=== PATIENT | female | born 1995 | race Caucasian/White ===

== ENCOUNTER 2019-10-03 21:19 | Emergency (ER) | payer BC ==
[2019-10-03] MEDS ORDERED: Sodium Chloride 0.9% 10 ML Syringe FLUSH PRN (21:42)
[2019-10-03] MEDS ORDERED: Sodium Chloride 0.9% 1,000 ML IV ONE (21:54)
[2019-10-03 21:59] LABS: CHLORIDE,CL 104 mmol/L (98-107); SODIUM,NA 138 mmol/L (136-145)
--- NOTE | 2019-10-03 22:24 | EDM.PDOC ---
ED HPI GENERAL MEDICAL PROBLEM - General Chief Complaint: General Stated Complaint: dizziness Time Seen by Provider: 10/03/19 21:30 Source of Information: Reports: Patient History Limitations: Reports: No Limitations - History of Present Illness INITIAL COMMENTS - FREE TEXT/NARRATIVE: Pt has felt weak and tired for several days Decreased appetite Dizzy when stands up No fever No N/V/D Pt currently on menses Did have flu shot - Related Data Allergies Allergy/AdvReac Type Severity Reaction Status Date / Time metronidazole [From Flagyl] Allergy Shortness Verified 10/03/19 21:43 of Breath Home Meds: Home Meds FLUoxetine HCl [Fluoxetine] 20 mg PO DAILY 10/03/19 [History] Ibuprofen 200 mg PO Q4HR PRN 10/03/19 [History] Social & Family History - Tobacco Use Smoking Status *Q: Never Smoker Second Hand Smoke Exposure: No - Caffeine Use Caffeine Use: Reports: Coffee Other Caffeine Use: 2-3 cups per day - Recreational Drug Use Recreational Drug Use: No ED ROS GENERAL - Review of Systems Review Of Systems: See Below Constitutional: Reports: Malaise, Weakness, Decreased Appetite Respiratory: Reports: No Symptoms Cardiovascular: Reports: No Symptoms GI/Abdominal: Reports: No Symptoms Musculoskeletal: Reports: No Symptoms Neurological: Reports: Dizziness ED EXAM, GENERAL - Physical Exam Exam: See Below Exam Limited By: No Limitations General Appearance: Mild Distress Throat/Mouth: Normal Oropharynx Neck: Supple Respiratory/Chest: Lungs Clear Cardiovascular: Regular Rate, Rhythm GI/Abdominal: Non-Tender Extremities: Normal Inspection Neurological: Alert, Oriented, No Motor/Sensory Deficits Course - Vital Signs Last Recorded V/S: Last Vital Signs Temp 36.4 C 10/03/19 21:35 Pulse 72 10/03/19 21:59 Resp 16 10/03/19 21:35 BP 115/65 10/03/19 21:59 Pulse Ox 95 10/03/19 21:35 - Orders/Labs/Meds Orders: Active Orders 24 hr Category Date Time Status EKG Documentation Completion [RC] ASDIRECTED Care 10/03/19 21:42 Active Peripheral IV Care [RC] . DIRECTED Care 10/03/19 21:42 Active Sodium Chloride 0.9% [Normal Saline] 1,000 ml Med 10/03/19 21:54 Active IV .BOLUS Sodium Chloride 0.9% [Saline Flush] Med 10/03/19 21:42 Active 10 ml FLUSH ASDIRECTED PRN Peripheral IV Insertion Adult [OM.PC] Routine Oth 10/03/19 21:42 Ordered EKG 12 Lead [EK] Routine Ther 10/03/19 21:41 Ordered Medication Orders Sodium Chloride (Normal Saline) 1,000 mls @ 1,000 mls/hr IV .BOLUS ONE Stop: 10/03/19 22:53 Last Admin: 10/03/19 21:58 Dose: 1,000 mls/hr Sodium Chloride (Saline Flush) 10 ml FLUSH ASDIRECTED PRN PRN Reason: Keep Vein Open Labs: Laboratory Tests 10/03/19 10/03/19 Range/Units 21:40 21:40 WBC 4.2 (4.0-10.2) K/uL RBC 4.62 (3.77-5.09) M/uL Hgb 13.6 (11.7-15.5) g/dL Hct 40.5 (34.0-46.0) % MCV 87.7 (84.0-98.0) fL MCH 29.4 (28.2-33.3) pg MCHC 33.6 (31.7-36.0) g/dL RDW 12.0 (11.2-14.1) % Plt Count 175 (150-350) K/uL Neut % (Auto) 58.5 (45.0-80.0) % Lymph % (Auto) 23.4 (10.0-50.0) % Hart % (Auto) 16.5 H (2.0-14.0) % Eos % (Auto) 1.4 (0.0-5.0) % Baso % (Auto) 0.2 (0.0-2.0) % Neut # (Auto) 2.44 (1.40-7.00) K/uL Lymph # (Auto) 0.98 (0.50-3.50) K/uL Hart # (Auto) 0.69 (0.00-1.00) K/uL Eos # (Auto) 0.06 (0.00-0.50) K/uL Baso # (Auto) 0.01 (0.00-0.20) K/uL Sodium 138 (136-145) mmol/L Potassium 3.7 (3.5-5.1) mmol/L Chloride 104 (98-107) mmol/L Carbon Dioxide 20.3 L (21.0-32.0) mmol/L BUN 11 (7-18) mg/dL Creatinine 0.78 (0.51-1.17) mg/dL Est Cr Clr Drug Dosing 96.04 mL/min Estimated GFR (MDRD) > 60 mL/min Glucose 102 (74-106) mg/dL Calcium 8.9 (8.5-10.1) mg/dL Total Bilirubin 0.2 (0.2-1.0) mg/dL AST 17 (15-37) U/L ALT 17 (12-78) U/L Alkaline Phosphatase 102 (46-116) IU/L Total Protein 7.8 (6.4-8.2) g/dL Albumin 4.0 (3.4-5.0) g/dL Meds: Medications Generic Name Dose Route Start Last Admin Trade Name Freq PRN Reason Stop Dose Admin Sodium Chloride 1,000 mls @ 1,000 mls/hr 10/03/19 21:54 10/03/19 21:58 Normal Saline IV 10/03/19 22:53 1,000 mls/hr .BOLUS ONE Administration Sodium Chloride 10 ml 10/03/19 21:42 Saline Flush FLUSH ASDIRECTED PRN Keep Vein Open - Re-Assessments/Exams Free Text/Narrative Re-Assessment/Exam: 10/03/19 22:22 Pt Influenza B positive Pt given NS IVF with improved symptoms Departure - Departure Time of Disposition: 23:30 Disposition: Home, Self-Care 01 Clinical Impression: Influenza B - Discharge Information *PRESCRIPTION DRUG MONITORING PROGRAM REVIEWED*: Not Applicable *COPY OF PRESCRIPTION DRUG MONITORING REPORT IN PATIENT JUAN MANUEL: Not Applicable Instructions: Influenza, Adult, [id number] Referrals: Chen Gonzalez, [employer] [Primary Care Provider] - Additional Instructions: Tylenol or Motrin as needed Encourage fluids Follow up in clinic Sepsis Event Note - Evaluation Sepsis Screening Result: No Definite Risk - Focused Exam Vital Signs: Vital Signs Temp Pulse Resp BP Pulse Ox 10/03/19 21:59 72 115/65 10/03/19 21:44 106 H 102/60 10/03/19 21:40 103 H 110/66 10/03/19 21:35 36.4 C 86 16 118/73 95 Date Exam was Performed: 10/03/19 Time Exam was Performed: 22:19 - My Orders Last 24 Hours: My Active Orders 10/03/19 21:41 EKG 12 Lead [EK] Routine 10/03/19 21:42 EKG Documentation Completion [RC] ASDIRECTED Peripheral IV Care [RC] . DIRECTED Sodium Chloride 0.9% [Saline Flush] 10 ml FLUSH ASDIRECTED PRN Peripheral IV Insertion Adult [OM.PC] Routine 10/03/19 21:54 Sodium Chloride 0.9% [Normal Saline] 1,000 ml IV .BOLUS - Assessment/Plan Last 24 Hours: My Active Orders 10/03/19 21:41 EKG 12 Lead [EK] Routine 10/03/19 21:42 EKG Documentation Completion [RC] ASDIRECTED Peripheral IV Care [RC] . DIRECTED Sodium Chloride 0.9% [Saline Flush] 10 ml FLUSH ASDIRECTED PRN Peripheral IV Insertion Adult [OM.PC] Routine 10/03/19 21:54 Sodium Chloride 0.9% [Normal Saline] 1,000 ml IV .BOLUS
[2019-10-03] MEDS ORDERED: Acetaminophen 500 MG Tab PO ONE (22:41)
== END 2019-10-03 23:15 | disposition home or self-care (01) ==
LOC: LL.ED 21:19
DX: J10.1 Influenza due to other identified influenza virus with other respiratory manifestations (principal); Z88.1 Allergy status to other antibiotic agents
CPT/HCPCS: 36415; 80053; 85025; 87804; 93005; 96360; 99284; A9270; J7030